=== PATIENT | female | born 1975 | race Native Hawaiian/Other Pacific Islander ===

== ENCOUNTER 2016-08-29 10:36 | Outpatient (CLI) | payer OTHER | END 2016-08-29 19:29 | disposition home or self-care (01) | LOC: MAMMO 10:36 | DX: Z12.31 Encounter for screening mammogram for malignant neoplasm of breast (principal) | CPT/HCPCS: G0202-TC ==

== ENCOUNTER 2017-03-06 10:16 | Outpatient (CLI) | payer OTHER | END 2017-03-06 19:05 | disposition home or self-care (01) | LOC: RAD 10:16 | DX: R60.0 Localized edema (principal); M25.561 Pain in right knee ==

== ENCOUNTER 2017-03-09 10:24 | Outpatient (CLI) | payer OTHER | END 2017-03-09 11:30 | disposition home or self-care (01) | LOC: US 10:24 | DX: R60.0 Localized edema (principal); M25.561 Pain in right knee ==

== ENCOUNTER 2018-09-06 12:54 | Outpatient (CLI) | payer BC | END 2018-09-06 20:04 | disposition home or self-care (01) | LOC: RAD 12:54 | DX: M79.671 Pain in right foot (principal) ==

== ENCOUNTER 2022-02-18 16:41 | Emergency (ER) | payer OTHER ==
[~2022-02-18] VITALS: Ht 162.6 cm; Wt 106.6 kg
[2022-02-18 17:46] LABS: PARTIAL THROMBOPLASTIN TIME 24.4 SECONDS (24.5-33.6)
[2022-02-18 17:54] LABS: PLATELET COUNT 188 K/uL (152-353)
[2022-02-18 20:20] VITALS: BP 124/78; TEMP 98
== END 2022-02-18 20:25 | disposition short-term general hospital (02) ==
LOC: ED 16:41
PROVIDERS: Hospitalist
DX: I26.99 Other pulmonary embolism without acute cor pulmonale (principal); U07.1 COVID-19; R07.89 Other chest pain
CPT/HCPCS: 36600; 80053; 82550; 82805; 83880; 84484; 85027; 85379; 85610; 85730; 87635; 93005; 96365; 96372; 99284; J1644; J1650; J2270; J2405; Q9963; U0003